=== PATIENT | male | born 1965 | race Caucasian/White ===

== ENCOUNTER → 2018-03-02 | Outpatient (CLI) | payer OTHER ==
[~2018-03-02] MED LIST: CIPROFLOXACIN500 M1 PO; COZAAR 25 MG TA25 M2 PO; DICYCLOMINE HCL10 MG PO; FARXIGA10 MG PO; HYDROCODONE-APA1 TA1 PO; IBUPROFEN 200200 M1 PO; LANTUS SUBQ; LEXAPRO20 MG PO; LUNESTA2 MG PO; NEURONTIN 300300 M1 PO; NORCO 5-325 TA1 EACH PO; PERCOCET PO; SYNTHROID125 MCG PO; VALSARTAN160 MG PO; VICODIN 5-3001 EACH PO; XANAX 0.25 MG0.25 MG PO; ZOFRAN ODT4 MG PO
[2018-03-02 13:54] LABS: ABSOLUTE BASOPHILS 0.1 thou/uL (0.0-0.2); ABSOLUTE EOSINOPHILS 0.1 thou/uL (0.0-0.7); ABSOLUTE LYMPHOCYTES 1.7 thou/uL (0.8-5.3); ABSOLUTE MONOCYTES 0.6 thou/uL (0.0-1.2); ABSOLUTE NEUTROPHILS 6.8 thou/uL (1.6-8.1); EOSINOPHILS 0.6 %; HEMATOCRIT 47.9 % (42.0-52.0); HEMOGLOBIN 16.4 gm/dL (14.0-18.0); MCH 30.9 pg (26.0-34.0); MCHC 34.2 g/dL (28.0-37.0); MCV 90.5 fL (80.0-100.0); MONOCYTES 6.2 %; MPV 8.5 fl. (7.2-11.1); NUCLEATED RBCS 0 /100WBC; PLATELET COUNT* 236 thou/uL (150-400); POLYS 74.2 %; RBC 5.29 mil/uL (4.50-6.00); RDW-CV 14.3 % (10.5-14.5); WBC 9.2 thou/uL (4.0-11.0)
[2018-03-02 14:07] LABS: ALBUMIN 4.1 g/dL (3.4-5.0); ALKALINE PHOSPHATASE 105 U/L (46-116); ANION GAP 10 mmol/L (7-16); BUN 13 mg/dL (7-18); CALCIUM 9.2 mg/dL (8.5-10.1); CHLORIDE 103 mmol/L (98-107); CHOLESTEROL 221 mg/dL (<200); CO2 26 mmol/L (21-32); GLUCOSE 235 mg/dL (70-99); HDL CHOLESTEROL 58 mg/dL (>40); LDL CHOLESTEROL 143 mg/dL (<100); POTASSIUM 3.6 mmol/L (3.5-5.1); SGOT 15 U/L (15-37); SGPT 31 U/L (30-65); SODIUM 139 mmol/L (136-145); TC:HDL 3.8 Ratio (Not establshd); TOTAL BILIRUBIN 0.5 mg/dL (<0.1-1.0); TOTAL PROTEIN 7.7 g/dL (6.4-8.2); TRIGLYCERIDE 104 mg/dL (<150); VLDL 21 mg/dL (<40)
[2018-03-02 14:20] LABS: SERUM ASSESSMENT Clear
[2018-03-03 02:06] LABS: GLYCOHEMOGLOBIN (HGB A1C) 8.2 % (4.8-5.6)
== END ==
LOC: M.LAB 13:22
PROVIDERS: Nurse Practitioner Family
DX: E11.59 Type 2 diabetes mellitus with other circulatory complications (principal); N45.1 Epididymitis; G89.4 Chronic pain syndrome; R81 Glycosuria; E03.9 Hypothyroidism, unspecified

== ENCOUNTER → 2018-11-02 | Outpatient (CLI) | payer OTHER ==
[~2018-11-02] MED LIST changes: +ASPIR 8181 MG PO; +FLEXERIL PO; +LEVOXYL175 MCG PO; +PERCOCET 5-3251 EACH PO; +PLAVIX 75 MG TA75 MG PO
== END ==
LOC: M.NUC 10-30 09:24
DX: K21.9 Gastro-esophageal reflux disease without esophagitis (principal); R13.10 Dysphagia, unspecified

== ENCOUNTER → 2018-11-06 | Outpatient (CLI) | payer OTHER | LOC: M.RAD 08:56 | DX: R13.10 Dysphagia, unspecified (principal) ==

== ENCOUNTER → 2018-11-16 | Outpatient (CLI) | payer OTHER | LOC: M.WC 07:38 | DX: S81.802A Unspecified open wound, left lower leg, initial encounter (principal); S61.401A Unspecified open wound of right hand, initial encounter; L03.116 Cellulitis of left lower limb; E11.65 Type 2 diabetes mellitus with hyperglycemia; E11.319 Type 2 diabetes mellitus with unspecified diabetic retinopathy without macular edema; K21.9 Gastro-esophageal reflux disease without esophagitis; F17.200 Nicotine dependence, unspecified, uncomplicated; Z79.01 Long term (current) use of anticoagulants; V49.49XA Driver injured in collision with other motor vehicles in traffic accident, initial encounter; Y93.89 Activity, other specified; Y92.89 Other specified places as the place of occurrence of the external cause; Y99.8 Other external cause status ==

== ENCOUNTER → 2018-11-17 | Outpatient (CLI) | payer OTHER | LOC: M.MRI 13:00 | DX: S60.222A Contusion of left hand, initial encounter (principal); M18.12 Unilateral primary osteoarthritis of first carpometacarpal joint, left hand; M19.042 Primary osteoarthritis, left hand; V89.2XXA Person injured in unspecified motor-vehicle accident, traffic, initial encounter; Y93.89 Activity, other specified; Y92.89 Other specified places as the place of occurrence of the external cause; Y99.8 Other external cause status ==

== ENCOUNTER → 2018-11-23 | Outpatient (CLI) | payer OTHER | LOC: M.WC 04:43 | DX: S61.402D Unspecified open wound of left hand, subsequent encounter (principal); S81.802A Unspecified open wound, left lower leg, initial encounter; E11.319 Type 2 diabetes mellitus with unspecified diabetic retinopathy without macular edema; E11.65 Type 2 diabetes mellitus with hyperglycemia; K21.9 Gastro-esophageal reflux disease without esophagitis; F17.200 Nicotine dependence, unspecified, uncomplicated; Z79.01 Long term (current) use of anticoagulants; V49.49XD Driver injured in collision with other motor vehicles in traffic accident, subsequent encounter ==

== ENCOUNTER → 2018-11-30 | Outpatient (CLI) | payer OTHER | LOC: M.WC 00:34 | DX: S61.402D Unspecified open wound of left hand, subsequent encounter (principal); S81.002D Unspecified open wound, left knee, subsequent encounter; E11.319 Type 2 diabetes mellitus with unspecified diabetic retinopathy without macular edema; E11.65 Type 2 diabetes mellitus with hyperglycemia; K21.9 Gastro-esophageal reflux disease without esophagitis; F17.200 Nicotine dependence, unspecified, uncomplicated; Z79.01 Long term (current) use of anticoagulants; V49.49XD Driver injured in collision with other motor vehicles in traffic accident, subsequent encounter ==

== ENCOUNTER → 2018-12-07 | Outpatient (CLI) | payer OTHER ==
[~2018-12-07] MED LIST changes: +AMBIEN 10 MG TA10 MG PO; +CIPRO500 MG PO; +CO Q-10100 MG PO; +COZAAR100 MG PO; +FLOMAX0.4 MG PO; +JARDIANCE25 MG PO; +LIPITOR80 MG PO; +NEURONTIN 300M300 M2 PO; +NORCO 7.5-3251 EACH PO; +OMEPRAZOLE40 MG PO; +PEPCID20 MG PO; +PROPAFENONE 15150 MG PO; +TOPROL XL50 MG; +UNICOMPLEX M TA1 TA1 PO; +XARELTO20 MG PO; +ZANTAC 150MG T150 MG PO
== END ==
LOC: M.WC 04:27
DX: S61.402D Unspecified open wound of left hand, subsequent encounter (principal); S81.802D Unspecified open wound, left lower leg, subsequent encounter; E11.65 Type 2 diabetes mellitus with hyperglycemia; E11.319 Type 2 diabetes mellitus with unspecified diabetic retinopathy without macular edema; K21.9 Gastro-esophageal reflux disease without esophagitis; F17.200 Nicotine dependence, unspecified, uncomplicated; Z79.01 Long term (current) use of anticoagulants; V49.49XD Driver injured in collision with other motor vehicles in traffic accident, subsequent encounter

== ENCOUNTER → 2018-12-11 | Outpatient (CLI) | payer OTHER ==
--- NOTE | 2018-12-11 13:21 | EKG ---
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: : 1965 Requested By: Matteo Echavarria Order Number: [id number] Reading MD: Matteo Echavarria Measurements Intervals [place] Rate: 58 P: 31 SD: 153 QRS: 44 QRSD: 87 T: -33 QT: 414 QTc: 407 Interpretive Statements Sinus rhythm Borderline T abnormalities, inferior leads Compared to ECG 11/08/2016 09:54:18 T-wave abnormality now present Electronically Signed On 12-11-2018 13:21:36 CDT by Matteo Echavarria [email or web address] <ELECTRONICALLY SIGNED> By: Matteo Echavarria MD, [facility] 12/11/18 1321 1004 1004 Matteo Echavarria MD, FAC /EPI
--- NOTE | 2018-12-11 16:59 | NUR ---
Patient arrived in [facility] holding and connected to EKG. Patient was no longer in AFib and no procedure was necessary. EKG confirmed sinus rhythm. Dr. Echavarria saw the patient and gave an prescription for rhythmol and follow up appt made for later this month. Patient left in stable condition and no procedures were performed.
== END ==
LOC: M.CL 12-08 12:55
DX: R94.31 Abnormal electrocardiogram [ECG] [EKG] (principal); Z53.9 Procedure and treatment not carried out, unspecified reason

== ENCOUNTER → 2018-12-14 | Outpatient (CLI) | payer OTHER | LOC: M.WC 04:45 | DX: S61.402D Unspecified open wound of left hand, subsequent encounter (principal); S81.002D Unspecified open wound, left knee, subsequent encounter; L03.114 Cellulitis of left upper limb; E11.319 Type 2 diabetes mellitus with unspecified diabetic retinopathy without macular edema; F17.200 Nicotine dependence, unspecified, uncomplicated; Z79.01 Long term (current) use of anticoagulants; Z68.37 Body mass index [BMI] 37.0-37.9, adult; V49.49XD Driver injured in collision with other motor vehicles in traffic accident, subsequent encounter ==

== ENCOUNTER → 2018-12-21 | Outpatient (CLI) | payer OTHER | LOC: M.WC 05:10 | DX: S61.402D Unspecified open wound of left hand, subsequent encounter (principal); S81.002D Unspecified open wound, left knee, subsequent encounter; E11.65 Type 2 diabetes mellitus with hyperglycemia; E11.319 Type 2 diabetes mellitus with unspecified diabetic retinopathy without macular edema; K21.9 Gastro-esophageal reflux disease without esophagitis; F17.200 Nicotine dependence, unspecified, uncomplicated; V49.49XD Driver injured in collision with other motor vehicles in traffic accident, subsequent encounter ==

== ENCOUNTER → 2018-12-28 | Outpatient (CLI) | payer OTHER | LOC: M.WC 10:00 | DX: S61.402D Unspecified open wound of left hand, subsequent encounter (principal); S81.802D Unspecified open wound, left lower leg, subsequent encounter; E11.65 Type 2 diabetes mellitus with hyperglycemia; E11.319 Type 2 diabetes mellitus with unspecified diabetic retinopathy without macular edema; K21.9 Gastro-esophageal reflux disease without esophagitis; F17.200 Nicotine dependence, unspecified, uncomplicated; Z79.01 Long term (current) use of anticoagulants; V49.49XD Driver injured in collision with other motor vehicles in traffic accident, subsequent encounter ==

== ENCOUNTER → 2019-01-04 | Outpatient (CLI) | payer OTHER | LOC: M.WC 04:44 | DX: S61.402D Unspecified open wound of left hand, subsequent encounter (principal); S81.002D Unspecified open wound, left knee, subsequent encounter; E11.65 Type 2 diabetes mellitus with hyperglycemia; E11.319 Type 2 diabetes mellitus with unspecified diabetic retinopathy without macular edema; K21.9 Gastro-esophageal reflux disease without esophagitis; F17.200 Nicotine dependence, unspecified, uncomplicated; Z79.01 Long term (current) use of anticoagulants; V49.49XD Driver injured in collision with other motor vehicles in traffic accident, subsequent encounter ==

== ENCOUNTER 2019-01-23 03:14 | Inpatient (IN) | payer OTHER ==
[2019-01-23] VITALS (16 sets, daily range): BP systolic 122–173; BP diastolic 72–110
[~2019-01-23] VITALS: Ht 167.6 cm; Wt 95.3 kg
[~2019-01-23 03:14] MED LIST changes: -TOPROL XL50 MG; +TOPROL XL50 MG PO
[2019-01-23 04:10] LABS: ABSOLUTE BASOPHILS 0.1 thou/uL (0.0-0.2); ABSOLUTE EOSINOPHILS 0.1 thou/uL (0.0-0.7); ABSOLUTE LYMPHOCYTES 1.4 thou/uL (0.8-5.3); ABSOLUTE MONOCYTES 0.8 thou/uL (0.0-1.2); ABSOLUTE NEUTROPHILS 5.1 thou/uL (1.6-8.1); BASOPHILS 0.8 %; EOSINOPHILS 1.7 %; HEMATOCRIT 46.6 % (42.0-52.0); LYMPHOCYTES 18.1 %; MCH 31.3 pg (26.0-34.0); MCHC 34.3 g/dL (28.0-37.0); MCV 91.3 fL (80.0-100.0); MONOCYTES 11.3 %; MPV 9.3 fl. (7.2-11.1); NUCLEATED RBCS 0 /100WBC; PLATELET COUNT* 181 thou/uL (150-400); POLYS 68.1 %; RDW-CV 14.8 % (10.5-14.5); WBC 7.5 thou/uL (4.0-11.0)
[2019-01-23 04:22] LABS: CALCIUM 8.7 mg/dL (8.5-10.1); CREATININE 0.9 mg/dL (0.6-1.3); POTASSIUM 3.6 mmol/L (3.5-5.1)
[2019-01-23 04:31] LABS: PROTIME 9.6 Seconds (9.20-11.50)
[2019-01-23 04:33] LABS: ALBUMIN 3.9 g/dL (3.4-5.0); TOTAL BILIRUBIN 0.6 mg/dL (<0.1-1.0); TOTAL PROTEIN 7.9 g/dL (6.4-8.2)
[2019-01-23 04:34] LABS: TROPONIN-I LEVEL 0.99 ng/mL (<0.06)
[2019-01-23 08:39] LABS: CK-MB MASS 66.1 ng/mL (<0.5-3.6)
[2019-01-23 08:41] LABS: TROPONIN-I LEVEL 32.45 ng/mL (<0.06)
--- NOTE | 2019-01-23 12:53 | EKG ---
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 : 1965 Requested By: Monae Montoya Order Number: [id number] MD: Carlton Olivera Measurements Intervals [place] Rate: 94 P: 47 MD: 184 QRS: 58 QRSD: 76 T: 6 QT: 375 QTc: 469 Interpretive Statements Sinus rhythm Possible left atrial enlargement Anteroseptal infarct, old, possible Baseline wander in lead(s) I,II,aVR,aVF Compared to ECG 12/11/2018 10:04:06 Myocardial infarct finding now present T-wave abnormality no longer present Electronically Signed On 01-23-2019 12:53:30 CDT by Carlton Olivera [email or web address] <ELECTRONICALLY SIGNED> By: Carlton Olivera MD, FACC 01/23/19 1253 7 7 Carlton Olivera MD, FAC /EPI
--- NOTE | 2019-01-23 12:56 | EKG ---
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 : 1965 Requested By: Monae Montoya Order Number: [id number] MD: Carlton Olivera Measurements Intervals [place] Rate: 87 P: 41 HI: 145 QRS: 40 QRSD: 79 T: -13 QT: 393 QTc: 473 Interpretive Statements Sinus rhythm Pbssible left atrial enlargement Borderline low voltage, extremity leads Anteroseptal infarct, old, possible Compared to ECG 12/11/2018 10:04:06 Myocardial infarct finding now present T-wave abnormality no longer present Electronically Signed On 01-23-2019 12:56:01 CDT by Carlton Olivera [email or web address] <ELECTRONICALLY SIGNED> By: Carlton Olivera MD, FACC 01/23/19 1256 0446 0446 Carlton Olivera MD, FAC /EPI
--- NOTE | 2019-01-23 12:57 | EKG ---
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: : 1965 Requested By: Nimesh Mckinney Order Number: [id number] MD: Carlton Olivera Measurements Intervals [place] Rate: 86 P: 54 IN: 149 QRS: 77 QRSD: 76 T: -47 QT: 379 QTc: 454 Interpretive Statements Sinus rhythm Low voltage, extremity leads Anteroseptal infarct, old Minimal ST depression, inferior leads Compared to ECG 12/11/2018 10:04:06 Low QRS voltage now present Myocardial infarct finding now present ST (T wave) deviation now present T-wave abnormality no longer present Electronically Signed On 01-23-2019 12:57:28 CDT by Carlton Olivera [email or web address] <ELECTRONICALLY SIGNED> By: Carlton Olivera MD, FACC 01/23/19 1257 0759 0759 Carlton Olivera MD, FACC /EPI
--- NOTE | 2019-01-23 17:15 | CON ---
[address] [address] CONSULTATION Name: SHELL SHETTY Room: [address] IN .R.#: [id number] Admission: 01/23/19 Attend Phys: Eliza Bailey MD Discharge: Date of : 67 Report #: [id number] THIS REPORT FOR: //name// CC: [facility] physician/PCP Eliza Bailey DATE OF SERVICE: 01/23/2019 INDICATION: Chest pain. HISTORY OF PRESENT ILLNESS: This is a 53-year-old male with a history of SC, PCI, diabetes mellitus, hypertension, tobacco use, presenting with chest pain. He woke up around 2:00 a.m. with substernal chest pain radiating down the right arm. He felt dyspneic and nauseous. He took nitroglycerin x 2 without any relief. He presented to the ER for an evaluation. The initial ECG reveals sinus rhythm with minimal ST segment depressions in the inferior leads. The first troponin came back positive at 0.99. He was managed with aspirin, nitroglycerin, and heparin in the ER. However, his pain persisted and it was decided to take the patient to the Cardiac Catheterization Laboratory. There is no history of fever, chills or orthopnea. 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 ALLERGIES: MORPHINE. MEDICATIONS: At home include Cozaar 100 mg daily, Toprol-XL 50 mg, Jardiance, Xarelto 20 mg, has not taken Xarelto in the past week, omeprazole, propafenone, Xanax, Plavix. SOCIAL HISTORY: One pack smoker per day. FAMILY HISTORY: Negative for premature CAD. REVIEW OF SYSTEMS: A full 10-point review of systems performed, only the pertinent positives and negatives are described in the HPI. PHYSICAL EXAMINATION: VITAL SIGNS: Blood pressure is 160/90, heart rate is 100 beats per minute. GENERAL APPEARANCE: This is a mildly overweight male, in mild distress. HEENT: Normocephalic, atraumatic. Oral mucosa moist. NECK: Supple. LUNGS: Clear to auscultation. CARDIAC: Regular rate and rhythm, S1, S2 positive. ABDOMEN: Soft, [place] [address] CONSULTATION Name: SENASHELLLuciana MAHONEY Room: [address]#: [id number] Admission: 01/23/19 Attend Phys: Eliza Bailey MD Discharge: Date of : 67 Report #: [id number] EXTREMITIES: No cyanosis, no edema. ECG reveals sinus rhythm, mild ST segment depressions in the inferolateral leads. LABORATORY VALUES: Troponin is positive 0.99. ASSESSMENT AND PLAN: 1. Non-ST elevation myocardial infarction with ongoing pain. We will proceed with cardiac catheterization. 2. Diabetes mellitus. Continue medications and check fingersticks. 3. Tobacco use, complete smoking cessation is advised. 4. Hypertension, continue with medications. 5. Hypercholesterolemia. Continue with statin therapy. <ELECTRONICALLY SIGNED> By: Nimesh Mckinney MD 01/23/19 1715 [id number] [id number] Mckinney MD /nt
[2019-01-24] VITALS: BP 112/79
[2019-01-24 04:00] VITALS: BP 109/74
--- NOTE | 2019-01-24 04:18 | NUR ---
RECIEVED REPORT AND ASSUMED CARE AT 1900. MESMERIST IN PLACE. VITAL SIGNS WERE STABLE. PT IS UP ADLIB. PT HAS SOME UPPER CHEST, BACK, NECK PAIN AND PRN MEDS GIVEN ORDERED. ASSESSMENT COMPLETED DISCUSSED PLAN OF CARE AND PT UNDERSTANDS. BED LOCKED AND CALL LIGHT WITHIN REACH. FALL PRECAUTIONS IN PLACE. HOURLY ROUNDING DONE AND ALL NEEDS MET. NURSING WILL CONTINUE TO MONITOR.
[2019-01-24 05:37] LABS: ABSOLUTE BASOPHILS 0.1 thou/uL (0.0-0.2); ABSOLUTE EOSINOPHILS 0.2 thou/uL (0.0-0.7); ABSOLUTE LYMPHOCYTES 1.5 thou/uL (0.8-5.3); ABSOLUTE MONOCYTES 1.3 thou/uL (0.0-1.2); ABSOLUTE NEUTROPHILS 5.6 thou/uL (1.6-8.1); BASOPHILS 0.8 %; LYMPHOCYTES 17.4 %; MCH 31.1 pg (26.0-34.0); MCHC 33.8 g/dL (28.0-37.0); MCV 92.1 fL (80.0-100.0); MONOCYTES 14.7 %; NUCLEATED RBCS 0 /100WBC; PLATELET COUNT* 169 thou/uL (150-400); POLYS 65.1 %; RBC 4.46 mil/uL (4.50-6.00); RDW-CV 15.3 % (10.5-14.5); WBC 8.6 thou/uL (4.0-11.0)
[2019-01-24 05:45] LABS: ALBUMIN 3.1 g/dL (3.4-5.0); ALKALINE PHOSPHATASE 93 U/L (46-116); ANION GAP 6 mmol/L (7-16); BUN 14 mg/dL (7-18); CALCIUM 8.8 mg/dL (8.5-10.1); CHLORIDE 101 mmol/L (98-107); CHOLESTEROL 164 mg/dL (<200); CO2 30 mmol/L (21-32); CREATININE 1.2 mg/dL (0.6-1.3); GLUCOSE 255 mg/dL (70-99); HDL CHOLESTEROL 53 mg/dL (>40); LDL CHOLESTEROL 98 mg/dL (<100); POTASSIUM 4.3 mmol/L (3.5-5.1); SGOT 55 U/L (15-37); SGPT 28 U/L (30-65); SODIUM 137 mmol/L (136-145); TC:HDL 3.1 Ratio (Not establshd); TOTAL BILIRUBIN 0.4 mg/dL (<0.1-1.0); TOTAL PROTEIN 6.6 g/dL (6.4-8.2); TRIGLYCERIDE 69 mg/dL (<150); VLDL 14 mg/dL (<40)
[2019-01-24 05:48] LABS: HEMOGLOBIN 13.9 gm/dL (14.0-18.0)
[2019-01-24 05:52] LABS: SERUM ASSESSMENT CLEAR; TROPONIN-I LEVEL 12.27 ng/mL (<0.06)
--- NOTE | 2019-01-24 08:06 | CARD ---
[address] [address] CARDIAC CATH REPORT Name: SENASHELLLuciana MAHONEY Room: [address] IN ..#: [id number] Admission: 01/23/19 Attend Phys: Eliza Bailey MD Discharge: Date of : 67 Report #: [id number] THIS REPORT FOR: //name// APPROVED REPORT Study performed: 01/23/2019 05:54:20 Patient Details Patient Status: ED Room #: The patient is a 53 year-old male Event Personnel Nimesh Mckinney Power Press Supervisor, Hasmukh Linder Gray, Jill RN RN, Alejandra Correia RN Monitor Procedures Performed Art Access - R femoral artery* Left Heart Cath w/or w/o Coronaries CARLIE Revasc AMI Total/Sub Single DIAG AMIREVSING CARLIE Place w/wo Plasty Single LAD Hemostasis w/ Angioseal Indication Non-STEMI (>0 to less than or equal to 6 hours), Dyspnea, Unstable angina Risk Factors Hypercholesterolemia, Coronary Artery DiseaseHypertension, Diabetes Tobacco History () Previous Procedures/Diagnoses Previous PCI Admission/Lab Medications/Medications given during procedure Plavix PO 600 mg Procedure Narrative The patient was brought urgently to the Cardiac Catheterization Laboratory and was prepped and draped in a sterile manner. The right femoral was infiltrated with 2% Lidocaine subcutaneous anesthesia. A 6fr Ultimum Sheath sheath was inserted into the right femoral artery. Coronary angiography was performed using coronary diagnostic catheters. The right coronary system was accessed and visualized with a Diagnostic JR4 catheter. The left coronary system was accessed and visualized with a Diagnostic JL4 catheter. The left ventricle was accessed and visualized with a Diagnostic PIGTAIL catheter. Pre-demployment femoral angiogram was performed . [place] [address] CARDIAC CATH REPORT Name: SHELL SHETTY Room: [address]#: [id number] Admission: 01/23/19 Attend Phys: Eliza Bailey MD Discharge: Date of : 67 Report #: [id number] deployed with a 6 Fr Angioseal. The patient tolerated the procedure well and there were no complications associated with the procedure. There was no hematoma. Intraoperative Conscious Sedation Sedation start time: 626 Case end Time: 718 Fentanyl 75 mcg Fluoro Time: 11.8 minutes Dose: 2652 mGy Contrast Type and Amount: Visipaque 320 ml Coronary Angiography The patient's coronary anatomy is right dominant. Diagnostic Cath Left Main This is a patent vessel, with no flow-limiting lesions. LAD The proximal segment has a discrete severe stenosis, 80%. The mid segment is patent with no flow-limiting lesions. The distal segment is a small-caliber vessel with severe diffuse disease, medical therapy is recommended. Diagonal 1 This vessel originates from the mid segment of the LAD and has a total occlusion in the ostium, appears to be the culprit vessel. Circumflex Supplies 2 OM vessels. OM1 This is a moderate size caliber vessel, patent with no flow-limiting lesions. OM2 This is a moderate size caliber vessel, patent with no flow-limiting lesions. Right Coronary This vessel is totally occluded in the proximal segment. The distal RCA branches are filled via collateral circulation from the left coronary artery. Left Ventriculography The left ventricle is normal in size with decreased contractility. The left ventricular ejection fraction is estimated to be 40-45%. There is hypokinesis of the anterolateral segment. Hemodynamics The aortic pressure is 149/82 mmHg with a mean of 115 mmHg. The left ventricular pressure is 164/6 mmHg with a mean of mmHg. The left ventricular end diastolic pressure is 33 mmHg. There was no gradient across the aortic valve upon pullback. [place] [address] CARDIAC CATH REPORT Name: SHELL SHETTY Room: [address] IN [facility]#: [id number] Admission: 01/23/19 Attend Phys: Eliza Bailey MD Discharge: Date of : 67 Report #: [id number] Anticoagulation was achieved with Angiomax. Patient was preloaded with Plavix. Percutaneous coronary intervention was performed on the first diagnonal branch segment. The lesion stenosis prior to intervention was 100% with MARGAUX 0 flow. A 6FR XB 3.5 100CM Guide Catheter was used to engage the ostium. A IG: Luge Wire 180 Interventional Guidewire was used to cross the lesion. BALLOON DILATION A Balloon catheter Mini Trek RX 2.0 X 12 was inserted and inflated up to 12.00atm for 16seconds. Additional Inflation: 8.00atm for 9seconds. Additional Inflation: 8.00atm for 9seconds. Additional Inflation : 8.00 janae for 11 seconds STENT DEPLOYMENT A drug-eluting stent Xience Skyla 2.63X36bq was inserted and inflated up to 14.00atm for 28seconds. Final angiography reveals 0 % stenosis with MARGAUX 3 flow. PCI Technique Lesion 2 Percutaneous Coronary Intervention was performed on the proximal left anterior descending artery segment. Patient was preloaded with Plavix. The lesion stenosis prior to intervention was 80% with MARGAUX 3 flow. A 6FR XB 3.5 100CM Guide Catheter was used to engage the ostium. A IG: Luge Wire 180 Interventional Guidewire was used to cross the lesion. Balloon Dilation A Balloon catheter Trek RX 2.5 X 12 was inserted and inflated up to 12.0atm for 20seconds. Stent Deployment A drug-eluting stent Xience Skyla 3.0X15mm was inserted and inflated up to 16.00atm for 15seconds. Post Stent Deployment Balloon Dilation A Balloon catheter NC Trek RX 3.25X8 was inserted and inflated up to 16.00atm for 15seconds. Additional Inflation: 16.00atm for 11seconds. Additional Inflation: 16.00atm for 12seconds. Final angiography reveals 0 % stenosis with MARGAUX 3 flow. Conclusion 1. Successful insertion of a drug-eluting stent into the first diagonal artery. [address] [address] CARDIAC CATH REPORT Name: SHELL SHETTY Room: M.226-P ADM IN M.R.#: [id number] Admission: 01/23/19 Attend Phys: Eliza Bailey MD Discharge: Date of : 67 Report #: [id number] 2. Successful insertion of a drug-eluting stent into the proximal LAD segment. 3. Severe diffuse disease in the distal LAD, medical therapy is recommended. 4. Occluded RCA with collateral filling of the distal branches. 5. Mild to moderate segmental LV dysfunction. 6. Recommend dual antiplatelet therapy and aggressive risk factor management. <ELECTRONICALLY SIGNED> By: Nimesh Mckinney MD 01/24/1906 5 0806Nimesh Mckinney MD /INF
[2019-01-24 08:31] VITALS: BP 122/71
[2019-01-24 09:15] VITALS: BP 149/89
[2019-01-24] MEDS ORDERED: ATORVASTATIN CA40 MG PO (09:52)
[2019-01-24] MEDS ORDERED: CO Q-10100 MG PO (09:53)
[2019-01-24] MEDS ORDERED: CHILDREN'S ASPI81 M1 PO (09:55)
[2019-01-24] MEDS ORDERED: NITROGLYCERIN0.4 MG SUBLING (09:56)
[2019-01-24 11:15] VITALS: BP 149/89
[2019-01-24 12:00] VITALS: BP 114/65
--- NOTE | 2019-01-24 13:06 | NUR ---
ASSUMED CARE OF PT AROUND 0730 THIS AM. REFER TO ASSESSMENT. PT HAS NO C/O CHEST PAIN. ANTICIPATE DC HOME TODAY. AWAITING ORDERS FROM PHYSICIAN. CARDIOLOGY HAS SIGNED OFF WITH FOLLOW UP APPOINTMENTS OUTPATIENT. NO OTHER CONCERNS AT THIS TIME.CLWR. WCTM.
[2019-01-24] MEDS ORDERED: JARDIANCE25 MG PO (13:12)
[2019-01-24] MEDS ORDERED: OMEPRAZOLE40 MG PO (13:14)
[2019-01-24] MEDS ORDERED: GLUCOPHAGE XR750 MG PO (13:15)
--- NOTE | 2019-01-24 13:22 | EKG ---
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: : 1965 Requested By: Nimesh Mckinney Order Number: [id number] Reading MD: Sinan Gonzalez Measurements Intervals [place] Rate: 79 P: 33 [place]: 144 QRS: 84 QRSD: 85 T: -50 QT: 351 QTc: 403 Interpretive Statements Sinus rhythm Anterior infarct, old Borderline repolarization abnormality Compared to ECG 01/23/2019 07:59:20 ST (T wave) deviation no longer present Myocardial infarct finding still present Electronically Signed On 01-24-2019 13:22:16 CDT by Sinan Gonzalez [email or web address] <ELECTRONICALLY SIGNED> By: Sinan Gonzalez MD, [facility] 01/24/19 1322 [phone] Sinan Gonzalez MD, [facility] /EPI
--- NOTE | 2019-01-24 14:36 | NUR ---
pt given dc instructions and verbalizes understanding. no other concerns at this time.
== END 2019-01-24 14:25 | disposition home or self-care (01) | DRG 247 ==
LOC: M.ERS 03:14 → M.TBA-ER 05:12 → M.2W 05:12
PROVIDERS: Emergency Medicine; Internal Medicine; Internal Medicine Cardiovascular Disease; ADMIT Internal Medicine
PROC: 027135Z Dilation of Coronary Artery, Two Arteries with Two Drug-eluting Intraluminal Devices, Percutaneous Approach (ICD-10-PCS; principal; 2019-01-23)
PROC: B41JYZZ Fluoroscopy of Other Lower Arteries using Other Contrast (ICD-10-PCS; principal; 2019-01-23)
PROC: 4A023N7 Measurement of Cardiac Sampling and Pressure, Left Heart, Percutaneous Approach (ICD-10-PCS; principal; 2019-01-23)
PROC: B211YZZ Fluoroscopy of Multiple Coronary Arteries using Other Contrast (ICD-10-PCS; principal; 2019-01-23)
DX: I21.4 Non-ST elevation (NSTEMI) myocardial infarction (principal); I25.110 Atherosclerotic heart disease of native coronary artery with unstable angina pectoris; E11.319 Type 2 diabetes mellitus with unspecified diabetic retinopathy without macular edema; E78.00 Pure hypercholesterolemia, unspecified; F17.210 Nicotine dependence, cigarettes, uncomplicated; E66.9 Obesity, unspecified; I48.0 Paroxysmal atrial fibrillation; E11.65 Type 2 diabetes mellitus with hyperglycemia; N18.2 Chronic kidney disease, stage 2 (mild); I12.9 Hypertensive chronic kidney disease with stage 1 through stage 4 chronic kidney disease, or unspecified chronic kidney disease; Z79.899 Other long term (current) drug therapy; Z79.82 Long term (current) use of aspirin; I25.2 Old myocardial infarction; Z88.6 Allergy status to analgesic agent; Z71.6 Tobacco abuse counseling; Z68.33 Body mass index [BMI] 33.0-33.9, adult; Z95.5 Presence of coronary angioplasty implant and graft

== ENCOUNTER 2020-01-27 06:09 | Emergency (ER) | payer OTHER ==
[~2020-01-27] VITALS: Ht 167.6 cm; Wt 100.2 kg
[~2020-01-27 06:09] MED LIST changes: +ATORVASTATIN CA40 MG PO; +CHILDREN'S ASPI81 M1 PO; +GLUCOPHAGE XR750 MG PO; +NITROGLYCERIN0.4 MG SUBLING
[2020-01-27] MEDS ORDERED: NORCO 5-325 TA1 EAC1 PO (06:29)
[2020-01-27] MEDS ORDERED: MEDROLDOSEPACK PO (06:29)
[2020-01-27] MEDS ORDERED: FLEXERIL PO (06:29)
[2020-01-27 06:43] VITALS: BP 172/103
== END 2020-01-27 06:46 | disposition home or self-care (01) ==
LOC: M.ERS 06:09
DX: M54.5 Low back pain (principal); E11.9 Type 2 diabetes mellitus without complications; F17.210 Nicotine dependence, cigarettes, uncomplicated; Z90.49 Acquired absence of other specified parts of digestive tract; Z88.6 Allergy status to analgesic agent